=== PATIENT | male | born 1980 | race Caucasian/White ===

== ENCOUNTER 2022-10-08 15:37 | Emergency (ER) | payer OTHER, SELFPAY ==
[2022-10-08 15:48] VITALS: BP 119/60; PULSE 80; RESP 16; TEMP 36.6; O2SAT 98
--- NOTE | 2022-10-08 15:57 | ED.NECK ---
HPI - Neck Pain/Injury General Chief Complaint: Neck Pain/Injury Stated Complaint: Neck Pain Time Seen by Provider: 10/08/22 15:55 Source: patient Mode of arrival: ambulatory Limitations: no limitations History of Present Illness HPI Narrative: Mr. Hernandez is a 42-year-old male patient presenting to the clinic today with complaints of neck pain x3 0.5 months. He reports that he tends to sleep in his computer chair at his desk and this has caused the neck pain. He has right-sided neck pain. Is having difficulty turning his head to the right. Related Data Home Medications Medication Instructions Recorded Confirmed omeprazole 40 mg capsule,delayed 40 mg PO DAILY 10/08/22 10/08/22 release Allergies Allergy/AdvReac Type Severity Reaction Status Date / Time Penicillins Allergy Unknown Hives / Verified 10/08/22 15:53 Red Face Review of Systems Review of Systems: Pertinent positives per HPI. Patient denies any fever, chills, rash, headache, visual changes, dizziness, cough, runny nose, sore throat, shortness of breath, chest pain, palpitations, nausea, vomiting, diarrhea, constipation, abdominal pain, or any urinary issues. PMFSH Comments At the time of my signature, I reviewed and agree with the nursing past medical, surgical, social, and family history. There is no relevant family history pertinent to the patient complaint. Exam Narrative: General: Well-developed, well nourished, in no apparent distress Head: Normocephalic, atraumatic. Cardio: Regular rate and rhythm, s1 and s2 normal, no murmur appreciated. Resp: Clear to auscultation bilaterally, no rhonchi, rales, wheezing or rubs. Musculoskeletal: No deformity,tender to palpation over the right side of the neck over the musculature pain with side to side and rotation to the right side, range of motion limited due to pain, muscle strength strong and equal, peripheral pulse strong, no edema, no cyanosis, normal gait and station Course Course Emergency Course: Portions of this record may have been created with voice recognition software. Level of Care: Express Care Visit Vital Signs Vital signs: Vital Signs Temperature 36.6 C 10/08/22 15:48 Pulse Rate 80 10/08/22 15:48 Respiratory Rate 16 10/08/22 15:48 Blood Pressure 119/60 10/08/22 15:48 Pulse Oximetry 98 10/08/22 15:48 Oxygen Delivery Room Air 10/08/22 15:48 Temperature 36.6 C 10/08/22 15:48 Pulse Rate 80 10/08/22 15:48 Respiratory Rate 16 10/08/22 15:48 Blood Pressure 119/60 10/08/22 15:48 Pulse Oximetry 98 10/08/22 15:48 Oxygen Delivery Room Air 10/08/22 15:48 Vital signs reviewed MDM - Neck Pain/Injury MDM Narrative Medical decision making narrative: At the time of visit patient is resting comfortably on the exam table. I suspect patient has cervical muscle strain. Will place patient on Flexeril and a Medrol Dosepak. Supportive measures were discussed with the patient and he voiced understanding discharge instructions and agrees to treatment plan. Differential Diagnosis Differential diagnosis: Likely whiplash injury to neck, cervical radiculopathy, cervical spondylosis and strain of neck muscle Discharge Plan Discharge Clinical Impression: Strain of neck muscle Patient Disposition: Home, Self-Care Condition: Stable Instructions: Antibiotic Form, Cervical Strain (ED) Additional Instructions: Take any prescription medication only as prescribed-Flexeril and a Medrol Dosepak Be mindful of sedation precautions given to you if taking a muscle relaxer. May use heat or ice to the affected area Consider massage or chiropractor adjustment if this was discussed with provider May use blue emu, lidocaine patches, or asper cream to affected area- do not apply heat or ice directly over cream- can cause burn. Complete appropriate neck stretching exercises. Follow up with your PCP in 3-5 days if symptom persist. Prescrip
== END 2022-10-08 16:05 | disposition home or self-care (01) ==
PROVIDERS: Emergency Provider Nurse Practitioner Family; PCP Internal Medicine
DX: S16.1XXA Strain of muscle, fascia and tendon at neck level, initial encounter (principal); X50.1XXA Overexertion from prolonged static or awkward postures, initial encounter; K21.9 Gastro-esophageal reflux disease without esophagitis; Z85.05 Personal history of malignant neoplasm of liver; Z92.21 Personal history of antineoplastic chemotherapy; Z92.3 Personal history of irradiation
CPT/HCPCS: 99203; G0463